=== PATIENT | male | born 1970 ===

== ENCOUNTER 2017-12-17 04:46 | Emergency (ER) | payer SELFPAY ==
--- NOTE | 2017-12-17 05:14 | C.PDOC ---
History Of Present Illness 47 year old male is brought in to the ED by ambulance for alcohol intoxication. Patient admits to drinking alcohol today. Patient requests to have his blood pressure checked, reports the last time he took his medication (micardis) was at least 3 weeks ago. Patient denies dizziness, headache, CP, palpitations, SOB , weakness, numbness or visual c/o. Time Seen by Provider: 12/17/17 05:02 Chief Complaint (Nursing): Substance Abuse History Per: Patient History/Exam Limitations: intoxication Onset/Duration Of Symptoms: Hrs Current Symptoms Are (Timing): Still Present Suicide/Self Injury Attempted (Context): None Modifying Factor(s): Alcohol Associated Symptoms: denies: Depression, Suicidal Thoughts, Suicidal Plan Recent travel outside of the [place]: No Additional History Per: Patient Past Medical History Reviewed: Historical Data, Nursing Documentation, Vital Signs Vital Signs: Last Vital Signs Temp 97.6 F 12/17/17 06:16 Pulse 72 12/17/17 06:16 Resp 16 12/17/17 06:16 BP 159/109 H 12/17/17 06:16 Pulse Ox 97 12/17/17 06:16 - Medical History PMH: HTN Surgical History: No Surg Hx Family History: States: Unknown Family Hx - Social History Hx Alcohol Use: Yes Hx Substance Use: No - Immunization History Hx Tetanus Toxoid Vaccination: No Hx Influenza Vaccination: No Hx Pneumococcal Vaccination: No Review Of Systems Eyes: Negative for: Vision Change Cardiovascular: Negative for: Chest Pain, Palpitations Respiratory: Negative for: Shortness of Breath Gastrointestinal: Negative for: Nausea, Vomiting Neurological: Negative for: Weakness, Numbness, Headache, Dizziness Psych: Negative for: Depression, Suicidal ideation Physical Exam - Physical Exam Appears: Non-toxic, No Acute Distress, Other (AOB) Skin: Normal Color, Warm, Dry Head: Atraumatic, Normacephalic Eye(s): bilateral: Normal Inspection Neck: Normal ROM, Supple Chest: Symmetrical Cardiovascular: Rhythm Regular Respiratory: Normal Breath Sounds, No Rales, No Rhonchi, No Wheezing Gastrointestinal/Abdominal: Soft, No Tenderness, No Guarding, No Rebound Extremity: Normal ROM, No Tenderness, No Swelling Neurological/Psych: Oriented x3, Normal Speech Gait: Steady ED Course And Treatment O2 Sat by Pulse Oximetry: 96 (ON RA) Pulse Ox Interpretation: Normal Progress Note: Plan: - Catapres 0.2 mg PO. Patient's blood pressure was elevated on evaluation, patient is asymptomatic besides his alcohol intoxication. Clonidine PO ordered. On reeval pt is sleeping but easily arousable, AAO x 3 in no distress, BP has improved. Pt was observed ambulatory in ED. Pt will be dc on BP meds as dose of micardis is unknown and advised to follow up with PMD Reevaluation Time: 06:23 Reassessment Condition: Improved Disposition - Disposition Referrals: [facility] [Outside] Disposition: HOME/ ROUTINE Disposition Time: 06:23 Condition: SERIOUS Additional Instructions: Fill prescription and take medication prescribed Follow up with your doctor or in our medical clinic Return to ER if worse Prescriptions: amLODIPine [Norvasc] 10 mg PO DAILY #10 tab Instructions: Alcohol Use - When Is Drinking a Problem?, High Blood Pressure ( DC) Forms: [employer] (Yoruba) - Clinical Impression Clinical Impression: Alcohol abuse, Non-compliant patient, Hypertension - PA / ESTIMATE CLERK / Resident Statement MD/DO has reviewed & agrees with the documentation as recorded. - Scribe Statement The provider has reviewed the documentation as recorded by the Scribe Ambrocio Coleman All medical record entries made by the [employer] were at my direction and personally dictated by me. I have reviewed the chart and agree that the record accurately reflects my personal performance of the history, physical exam, medical decision making, and the department course for this patient. I have also personally directed, reviewed, and agree with the discharge instructions and disposition.
[2017-12-17 06:17] VITALS: BP 159/109; PULSE 72; RESP 16; TEMP 97.6
[2017-12-17 06:23] VITALS: O2SAT 96
[2017-12-17] MEDS ORDERED: Aluminum Hydroxide/Magnesium Hydroxide Susp (30 mL) PO STA (06:35)
[2017-12-17] MEDS ORDERED: Aluminum Hydroxide/Magnesium Hydroxide Susp (30 mL) ONE (06:38)
== END 2017-12-17 06:42 | disposition home or self-care (01) ==
LOC: C.ER 04:46
DX: F10.10 Alcohol abuse, uncomplicated (principal); I10 Essential (primary) hypertension